=== PATIENT | female | born 1945 | race Caucasian/White ===

== ENCOUNTER 2017-06-13 04:56 | Inpatient (IN) | payer OTHER ==
[~2017-06-13] VITALS: Ht 165.1 cm; Wt 67.8 kg
--- NOTE | ~2017-06-13 | O ---
[facility] [place] [address] OPERATIVE REPORT Name: PRAVEENA FISHMAN Room #: 434-P [facility] IN M.R.#: [id number] Admission: 06/13/17 Attend Phys: Koko Medrano DO Discharge: 06/20/17 Date of : 43 Report #: [id number] THIS REPORT FOR: //name// CC: Tito Milian SURGEON: Shawn Jackson MD. SATELLITE SPECIALIST: Wiliam Blackwood DO. PREOPERATIVE DIAGNOSES: 1. 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 2. Diabetes mellitus. 3. Hypertension. 4. History of Ronnie thyroiditis. POSTOPERATIVE DIAGNOSES 1. 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 2. Extensive intra-abdominal adhesions. 3. Incarcerated incisional ventral hernia (from previous open appendectomy). 4. Diabetes mellitus. 5. Hypertension. 6. History of Ronnie thyroiditis. PROCEDURE: 1. Diagnostic laparoscopy with extensive laparoscopic lysis of adhesions lasting 82 minutes. 2. Laparoscopic primary repair of incarcerated incisional ventral hernia. 3. Laparoscopic converted to open laparotomy. 4. Revision of the ileocolic anastomosis (with resection and stapled reanastomosis in a lfvd-wg-[id number], functional end-to-side fashion). 5. Application of topical wound VAC/Prevena. 6. This is a modifier 22 operation based on the length of time necessary to takedown the adhesions. Adhesions were present throughout the entire abdominal cavity and dissection was very tedious in order to place ports after placement of the initial port. This operation took nearly an hour and a half longer than it would have otherwise taken. ANESTHESIA: General endotracheal anesthesia and local anesthetic. ESTIMATED BLOOD LOSS: 25 mL. SPECIMEN: Old anastomosis with suture marking, the colonic staple line and new [facility] [address] [place] [address] OPERATIVE REPORT Name: PRAVEENA FISHMAN Room #: 434-P [facility] IN ..#: [id number] Admission: 06/13/17 Attend Phys: Koko Medrano DO Discharge: 06/20/17 Date of : 43 Report #: [id number] anastomosis. COMPLICATIONS: None appreciated. INDICATIONS FOR PROCEDURE: This is a 71-year-old female patient who was transferred from the hospital in [place], [place] with complaints of nausea, vomiting, diarrhea and abdominal pain. She underwent a CT of abdomen and pelvis which revealed dilated loops of small bowel. She was decompressed with a nasogastric tube and had improvement of her pain and began passing flatus. Imaging studies revealed a partial small-bowel obstruction as well as stricture at the ileocolic anastomosis on barium enema. It was reported that she had a stricture at this anastomosis on a previous colonoscopy. The patient presents now for diagnostic laparoscopy with revision of the anastomosis. OPERATIVE FINDINGS: Upon entrance into the abdominal cavity laparoscopically, dense intra-abdominal adhesions were present from the patient's previous operations. After taking down enough adhesions to place initially a port in the left lateral abdomen, then on the left lower quadrant of the abdomen, I was able to take down enough of the scar tissue to visualize the colon; however, there was significant scar tissue throughout between the colon and loops of small bowel as well as to the anterior abdominal wall. After taking these down, I was able to identify an incisional ventral hernia associated with her open appendectomy incisional scar. This was incarcerated with preperitoneal fat with no bowel involvement. It was amenable to primary repair. This was performed laparoscopically before the decision was made to convert to an open procedure in order to better evaluate the ileocolic anastomosis. After making the incision, and after taking down more scar tissue, the ileocolic anastomosis was palpated to be 1 cm or less in diameter. There were chronic inflammatory changes around this area with no specific band of scar tissue causing an obstructive process. After freeing up enough of the small bowel and colon to be resected, the excised specimen was opened on the backtable. The strictured area was easily identified. No masses were present within the specimen. A 75 mm RASHAD stapler was used to create the vveb-zh-kxvr functional end-to-side anastomosis. The anastomosis was palpably patent after its creation and there was no tension on the anastomosis. No other significant intraabdominal pathology was identified. At the conclusion of the operation, sponge, needle, and instrument counts were correct and there was no evidence for iatrogenic injury. DESCRIPTION OF PROCEDURE IN DETAIL: After the risks, benefits, and expectations of the operation were discussed in detail with the patient, informed consent was obtained. The patient was identified in the preoperative holding area. She was given IV antibiotics as documented in the chart in line with SCIP metrics. The patient was then taken to the operating room and she was placed in the supine position. SCDs were placed on the patient's bilateral lower extremities and pneumatic compression was initiated. The patient was then given IV sedation and [address] [address] OPERATIVE REPORT Name: PRAVEENA FISHMAN Room #: 434-P [facility] IN [place].#: [id number] Admission: 06/13/17 Attend Phys: Koko Medrano Discharge: 06/20/17 Date of : 43 Report #: [id number] she was intubated without incident. Her abdomen was prepped and draped in the standard sterile fashion. A time-out was performed to identify the correct patient and procedure. Local anesthetic was infiltrated into the skin and subcutaneous tissue in the left subcostal area where a small transverse incision was made. A 5 mm Visiport was placed intraperitoneally with a 0-degree angled laparoscope. Pneumoperitoneum was then achieved with insufflation of carbon dioxide to 15 mmHg. The 0-degree angled laparoscope was used to take down the scar tissue along the left lateral abdomen to create space for placement of another port. After creating enough space, local anesthetic was infiltrated and an additional 5-mm port was placed through an appropriately sized incision after local anesthetic was infiltrated into the skin and subcutaneous tissue. Using this port, I was able to take down more of the adhesions in a slow and controlled fashion to clear enough space in the left lower quadrant for placement of an additional 5 mm port. A 30-degree angled laparoscope was then inserted. Dissection was carried out to take down the adhesions working from the patient's left abdomen over to the right abdomen. While doing so, an incisional ventral hernia was seen in the right abdomen associated with her previous open appendectomy. Additional small hernias were seen along the midline from her previous exploratory laparotomy. A eotvha-ts-vozkd 0 PDS suture was placed with the needle tipped suture grasper. The suture was tied with good closure of the defect. The incarcerated tissue had been dissected free of the defect. At this point, the anastomosis could no longer be evaluated laparoscopically or well visualized and decision was made to convert to an open procedure. The ports were removed and the abdominal cavity was desufflated. A sharp #10 blade scalpel was used to make a vertical midline incision through the skin and subcutaneous tissue. Electrocautery was used to dissect through the subcutaneous tissue down the fascia. The fascia and peritoneum were then opened along the length of the incision while also opening the hernia defects. The underlying colon was seen and appropriate traction was used to better expose the abdominal cavity. The colon and small bowel anastomosis was able to be identified and upon palpation, the anastomosis was felt to be quite small. The small bowel and colon were freed up enough more medially to create mesenteric windows with electrocautery. Blue load RASHAD staplers were used to staple and divide both the colon and small bowel. The mesentery was then divided with the X1 energy device with good hemostasis. The specimen was removed and placed on the backtable. The antimesenteric corners of the colon and small bowel were then aligned and approximated with a 3-0 PDS suture. The antimesenteric staple line corners were then excised and each limb of the blue load 75 mm RASHAD stapler were passed down each limb of the colon and small bowel. The stapler was then fired and removed. The common enterocolotomy was then approximated with Allis clamps. A 60 mm [place] stapler with a blue load was used to staple off the common enterocolotomy. The excess tissue was excised and the stapler was removed. The crotch of the anastomosis was reinforced with a simple interrupted 3-0 PDS suture. The mesenteric defect was closed with a running 3-0 PDS suture. [facility] [address] [place] [address] OPERATIVE REPORT Name: PRAVEENA FISHMAN Room #: 434-P DIS IN M.R.#: [id number] Admission: 06/13/17 Attend Phys: Koko Medrano, Discharge: 06/20/17 Date of : 43 Report #: [id number] Interrupted 3-0 PDS Lembert sutures were then used to imbricate the common enterocolotomy staple line. The anastomosis was palpably widely patent. There was no tension whatsoever on the anastomosis. The abdominal cavity was then irrigated and suctioned and return of all drainage ran clear. The sponge, needle and instrument counts were correct. No other pathology was identified. A running looped #1 PDS suture was then used to close the midline abdominal wall fascia. The wound was irrigated. Jasper were used for skin closure. Jasper were also placed at each of the port sites as well as in the right lower quadrant where a small stab wound was made to repair the incarcerated incisional ventral hernia. The skin was then cleansed and the Prevena topical negative pressure dressing was applied. A good seal was present. The patient tolerated the procedure well. She was awakened, extubated, and taken to recovery room in stable condition with no apparent intraoperative complications. <ELECTRONICALLY SIGNED> By: Shawn Jackson MD, FACS 06/20/17 [id number] Shawn Jackson MD, FACS /nt
--- NOTE | ~2017-06-13 | S ---
[facility] [place] [address] SURGICAL PATH RPT PROCEDURE Name: PRAVEENA FISHMAN Room #: 434-P DIS IN M.R.#: [id number] Admission: 06/13/17 Date of : 43 Discharge: 06/20/17 Report #: [id number] Path Case #: [id number] PATHOLOGY REPORT COLLECTION DATE: 06/16/2017 RECEIVED DATE: 06/20/2017 SUBMITTING PHYS: Dr. Shawn Jackson OTHER PHYS: Dr. Koko Blackwood, DO Abril Milian, [facility]- Dr. Norm Fuentes SPECIMEN(S) RECEIVED: A.Ileo-colic anastomosis-suture corona colon B.Anastomosis * * * * * * * * * * * * FINAL DIAGNOSIS: A. Small bowel and large intestine, Ileocolic anastomosis, resection: - Congested bowel wall associated with fibrous adhesions on serosal surface, history of scar tissue causing obstructive process. - Negative for dysplasia or malignancy. - Margins of resection viable and unremarkable. B. Anastomosis: - No diagnostic abnormalities present. (IUV:db; 06/21/2017) PATHOLOGIST: Mally Burdick M.D. REPORT ELECTRONICALLY SIGNED BY: Mally Burdick M.D. DATE/TIME: 06/21/2017 14:10 * * * * * * * * * * * * GROSS PATHOLOGY: A. The specimen is received in formalin, labeled "Steve, ileocolic anastomosis, suture corona colon is gastrointestinal tissue with a single attached suture. The specimen is consistent with a "side to side' anastomosis. The small intestine segment measures 7.0 cm length by 3.0 cm in diameter while the large intestine measures 8.0 cm in length by 3.4 cm in diameter. There is minimal fat attached to the specimen. The serosa is slightly congested, red maroon, and slightly hemorrhagic. The specimen is been previously opened. The anastomosis appears grossly intact. The small and large intestinal mucosa is folded, baig, green, and shows no obvious gross lesions. The surgical margins appear grossly viable. Sectioning the fat reveals no gross lesions. Veterinary [employer]ist sections are submitted as follows: [address] [address] SURGICAL PATH RPT PROCEDURE Name: PRAVEENA FISHMAN Room #: 434-P DIS IN M.R.#: [id number] Admission: 06/13/17 Date of : 43 Discharge: 06/20/17 Report #: [id number] Path Case #: [id number] A1-A2 anastomosis site A3-A4 quality control representative margins B. The specimen is received in formalin, labeled "Steve, anastomosis is a fragment of mucosal tissue with underlying muscularis propria, 4.0 x 1.5 x 1.2 cm. There is a staple line at one surface that measures up to 2.7 cm in length. The mucosa is glistening, baig, with no lesions identified. A quality control representative section is submitted as B1. (SAWYER; 06/20/2017) CLINICAL HISTORY: Bowel obstruction INITIAL CPT CODE(S): A; 74926 B; 88115 Professional services performed by [facility] at [facility] [address], [place] [address] Technical services performed by [facility] at [address] [place] [address], [address], [place] [address]. [facility] [address] [place] [address] PHONE: [phone] DIRECTOR: Melvin Roth M.D. * * * END OF REPORT * * *
[2017-06-13 10:45] VITALS: BP 158/75
[2017-06-13 12:04] LABS: URINE BILIRUBIN NEGATIVE (Negative); URINE BLOOD NEGATIVE (Negative); URINE COLOR YELLOW; URINE GLUCOSE-RANDOM* NEGATIVE (Negative); URINE KETONES NEGATIVE (Negative); URINE LEUKOCYTES-REFLEX NEGATIVE (Negative); URINE PROTEIN (DIPSTICK) TRACE (Negative); URINE UROBILINOGEN 0.2 E.U./dl (0.2-1.0)
[2017-06-13] MEDS ORDERED: FISH OIL 1,001000 M2 PO (12:35)
[2017-06-13] MEDS ORDERED: BENTYL 20 MG TA20 M1 PO (13:56)
[2017-06-13] MEDS ORDERED: CARVEDILOL12.5 MG PO (13:57)
[2017-06-13] MEDS ORDERED: HYOSCYAMINE0.125 MG PO (13:58)
[2017-06-13] MEDS ORDERED: PHENERGAN 25 MG25 M1 PO (13:59)
[2017-06-13 16:46] VITALS: BP 139/66
[2017-06-13 19:35] VITALS: BP 148/69
[2017-06-14 04:05] VITALS: BP 155/75
[2017-06-14 06:19] LABS: HEMATOCRIT 36.6 % (37.0-47.0); HEMOGLOBIN 12.1 gm/dL (12.0-15.0); MCH 27.7 pg (26.0-34.0); MCV 83.8 fL (80.0-100.0); PLATELET COUNT 242 thou/uL (150-400); RBC 4.37 mil/uL (4.20-5.00); RDW 15.9 % (10.5-14.5); WBC 8.4 thou/uL (4.0-11.0)
[2017-06-14 06:26] LABS: MANUAL DIFF YES
[2017-06-14 06:29] LABS: ALBUMIN 3.1 g/dL (3.4-5.0); CALCIUM 8.7 mg/dL (8.5-10.1); CREATININE 0.8 mg/dL (0.6-1.0); POTASSIUM 3.6 mmol/L (3.5-5.1); TOTAL PROTEIN 6.3 g/dL (6.4-8.2)
[2017-06-14 07:22] VITALS: BP 155/76
[2017-06-14 08:00] VITALS: BP 158/81
[2017-06-14 08:08] LABS: ABSOLUTE NEUTROPHILS 5.4 thou/uL (1.4-8.2); ANISOCYTOSIS 1+; TOTAL CELL COUNT 100
[2017-06-14 14:47] VITALS: BP 171/79
[2017-06-14 19:10] VITALS: BP 154/66
[2017-06-15 04:54] VITALS: BP 175/81
[2017-06-15 05:14] LABS: ABSOLUTE NEUTROPHILS 7.2 thou/uL (1.4-8.2); BASOPHILS 0.4 % (0.0-2.0); EOSINOPHILS 0.5 % (0.0-3.0); HEMATOCRIT 38.1 % (37.0-47.0); HEMOGLOBIN 12.6 gm/dL (12.0-15.0); LYMPHOCYTES 20.7 % (24.0-44.0); MCH 28.1 pg (26.0-34.0); MCHC 33.1 g/dL (28.0-37.0); MCV 84.9 fL (80.0-100.0); PLATELET COUNT 212 thou/uL (150-400); POLYS 68.4 % (36.0-66.0); RBC 4.49 mil/uL (4.20-5.00); RDW 15.9 % (10.5-14.5); WBC 10.5 thou/uL (4.0-11.0)
[2017-06-15 05:22] LABS: MANUAL DIFF NO
[2017-06-15 05:32] LABS: CALCIUM 8.5 mg/dL (8.5-10.1); CREATININE 0.8 mg/dL (0.6-1.0); POTASSIUM 3.5 mmol/L (3.5-5.1)
[2017-06-15 08:00] VITALS: BP 169/80
[2017-06-15 15:50] VITALS: BP 168/85
[2017-06-15 19:42] VITALS: BP 165/83
[2017-06-16 03:56] VITALS: BP 170/77
[2017-06-16 06:04] LABS: BASOPHILS 0.4 % (0.0-2.0); EOSINOPHILS 1.3 % (0.0-3.0); HEMATOCRIT 37.5 % (37.0-47.0); HEMOGLOBIN 12.3 gm/dL (12.0-15.0); LYMPHOCYTES 18.9 % (24.0-44.0); MCH 27.8 pg (26.0-34.0); MCHC 32.7 g/dL (28.0-37.0); MCV 84.9 fL (80.0-100.0); MONOCYTES 9.4 % (1.0-8.0); PLATELET COUNT 205 thou/uL (150-400); RBC 4.41 mil/uL (4.20-5.00); RDW 15.5 % (10.5-14.5); WBC 10.1 thou/uL (4.0-11.0)
[2017-06-16 06:06] LABS: MANUAL DIFF NO
[2017-06-16 06:14] LABS: INR 1.1; PROTIME 11.3 Seconds (9.3-11.4)
[2017-06-16 06:18] LABS: CALCIUM 8.5 mg/dL (8.5-10.1); CREATININE 0.6 mg/dL (0.6-1.0); MAGNESIUM 1.8 mg/dL (1.8-2.4); PHOSPHORUS 2.7 mg/dL (2.5-4.9)
[2017-06-16 08:00] VITALS: BP 146/66; BP 165/71
[2017-06-16 11:19] VITALS: BP 178/98
[2017-06-16 17:10] VITALS: BP 143/73
[2017-06-16 19:10] VITALS: BP 170/94
[2017-06-17 02:18] LABS: HEMATOCRIT 37.1 % (37.0-47.0); HEMOGLOBIN 12.1 gm/dL (12.0-15.0); MCH 27.5 pg (26.0-34.0); MCHC 32.6 g/dL (28.0-37.0); MCV 84.6 fL (80.0-100.0); PLATELET COUNT 207 thou/uL (150-400); RBC 4.38 mil/uL (4.20-5.00); RDW 14.8 % (10.5-14.5); WBC 17.1 thou/uL (4.0-11.0)
[2017-06-17 02:24] LABS: CALCIUM 8.5 mg/dL (8.5-10.1); CREATININE 0.8 mg/dL (0.6-1.0); POTASSIUM 3.9 mmol/L (3.5-5.1)
[2017-06-17 02:32] LABS: MANUAL DIFF YES
[2017-06-17 04:00] VITALS: BP 157/71
[2017-06-17 05:03] LABS: ABSOLUTE NEUTROPHILS 15.9 thou/uL (1.4-8.2); ANISOCYTOSIS SLIGHT; TOTAL CELL COUNT 100
[2017-06-17 08:00] VITALS: BP 161/70
[2017-06-17 16:00] VITALS: BP 146/64
[2017-06-17 19:30] VITALS: BP 165/80
[2017-06-18 02:57] LABS: ABSOLUTE NEUTROPHILS 8.2 thou/uL (1.4-8.2); BASOPHILS 0.2 % (0.0-2.0); EOSINOPHILS 0.3 % (0.0-3.0); HEMATOCRIT 32.4 % (37.0-47.0); HEMOGLOBIN 10.7 gm/dL (12.0-15.0); LYMPHOCYTES 10.5 % (24.0-44.0); MCHC 32.9 g/dL (28.0-37.0); MCV 85.2 fL (80.0-100.0); MONOCYTES 9.8 % (1.0-8.0); PLATELET COUNT 177 thou/uL (150-400); POLYS 79.2 % (36.0-66.0); RDW 15.3 % (10.5-14.5); WBC 10.4 thou/uL (4.0-11.0)
[2017-06-18 03:01] LABS: MANUAL DIFF NO
[2017-06-18 03:03] LABS: CALCIUM 8.2 mg/dL (8.5-10.1); CREATININE 0.6 mg/dL (0.6-1.0)
[2017-06-18 04:00] VITALS: BP 151/66
[2017-06-18 08:01] VITALS: BP 150/67
[2017-06-18 15:35] VITALS: BP 140/65
[2017-06-18 19:10] VITALS: BP 146/65
[2017-06-19 03:26] VITALS: BP 148/70
[2017-06-19 05:18] LABS: ABSOLUTE NEUTROPHILS 6.1 thou/uL (1.4-8.2); BASOPHILS 0.3 % (0.0-2.0); EOSINOPHILS 3.2 % (0.0-3.0); HEMATOCRIT 31.2 % (37.0-47.0); HEMOGLOBIN 10.3 gm/dL (12.0-15.0); LYMPHOCYTES 12.7 % (24.0-44.0); MCH 27.9 pg (26.0-34.0); MCV 84.7 fL (80.0-100.0); MONOCYTES 11.5 % (1.0-8.0); PLATELET COUNT 186 thou/uL (150-400); POLYS 72.3 % (36.0-66.0); RBC 3.68 mil/uL (4.20-5.00); WBC 8.4 thou/uL (4.0-11.0)
[2017-06-19 05:19] LABS: MANUAL DIFF NO
[2017-06-19 05:45] LABS: CALCIUM 8.3 mg/dL (8.5-10.1); CREATININE 0.5 mg/dL (0.6-1.0); MAGNESIUM 1.8 mg/dL (1.8-2.4); POTASSIUM 3.5 mmol/L (3.5-5.1)
[2017-06-19 09:08] VITALS: BP 145/75
[2017-06-19 19:44] VITALS: BP 144/72
[2017-06-20 05:09] VITALS: BP 162/78
[2017-06-20 06:23] LABS: HEMATOCRIT 31.3 % (37.0-47.0); HEMOGLOBIN 10.5 gm/dL (12.0-15.0); MANUAL DIFF YES; MCH 28.4 pg (26.0-34.0); MCHC 33.6 g/dL (28.0-37.0); MCV 84.5 fL (80.0-100.0); PLATELET COUNT 222 thou/uL (150-400); RBC 3.71 mil/uL (4.20-5.00); RDW 15.6 % (10.5-14.5); WBC 5.8 thou/uL (4.0-11.0)
[2017-06-20 06:31] LABS: CALCIUM 8.6 mg/dL (8.5-10.1); CREATININE 0.5 mg/dL (0.6-1.0); POTASSIUM 3.5 mmol/L (3.5-5.1)
[2017-06-20 08:00] VITALS: BP 147/77
[2017-06-20 08:44] LABS: ABSOLUTE NEUTROPHILS 3.9 thou/uL (1.4-8.2); PLATELET ESTIMATE NORMAL; TOTAL CELL COUNT 100
[2017-06-20] MEDS ORDERED: TRAMADOL 50 MG50 MG PO (10:37)
[2017-06-20] MEDS ORDERED: FAMOTIDINE20 MG/2 M2 PO (10:37)
[2017-06-20] MEDS ORDERED: MAGNESIUM OXID400 MG PO (10:37)
[2017-06-20 11:30] VITALS: BP 147/77
[2017-06-20] MEDS ORDERED: SENNA S TABLET1 EACH PO (11:35)
== END 2017-06-20 15:22 | disposition home health service (06) | DRG 329 ==
LOC: 4E 04:56 → 4S 10:09 → ENTRNSPT 06-20 15:07 → EDTRNSPTSTS 06-20 15:11 → 4S 06-20 15:22
PROVIDERS: Internal Medicine Geriatric Medicine; Nurse Practitioner; Nurse Practitioner Family; Otolaryngology; Surgery
PROC: 0WQF4ZZ Repair Abdominal Wall, Percutaneous Endoscopic Approach (ICD-10-PCS; principal; 2017-06-13)
PROC: 0D1B0ZH Bypass Ileum to Cecum, Open Approach (ICD-10-PCS; principal; 2017-06-13)
PROC: 0D9670Z Drainage of Stomach with Drainage Device, Via Natural or Artificial Opening (ICD-10-PCS; principal; 2017-06-13)
PROC: 0DN84ZZ Release Small Intestine, Percutaneous Endoscopic Approach (ICD-10-PCS; principal; 2017-06-13)
PROC: 0DNE4ZZ Release Large Intestine, Percutaneous Endoscopic Approach (ICD-10-PCS; principal; 2017-06-13)
DX: K56.69 Other intestinal obstruction (principal); E43 Unspecified severe protein-calorie malnutrition; E87.0 Hyperosmolality and hypernatremia; K43.6 Other and unspecified ventral hernia with obstruction, without gangrene; E11.9 Type 2 diabetes mellitus without complications; I10 Essential (primary) hypertension; K66.0 Peritoneal adhesions (postprocedural) (postinfection); E87.6 Hypokalemia; Z90.49 Acquired absence of other specified parts of digestive tract; Z90.710 Acquired absence of both cervix and uterus; Z82.49 Family history of ischemic heart disease and other diseases of the circulatory system; Z83.3 Family history of diabetes mellitus; Z82.0 Family history of epilepsy and other diseases of the nervous system; Z82.3 Family history of stroke; Z88.6 Allergy status to analgesic agent; Z88.0 Allergy status to penicillin; Z88.2 Allergy status to sulfonamides; Z79.899 Other long term (current) drug therapy; Z68.24 Body mass index [BMI] 24.0-24.9, adult; Y83.2 Surgical operation with anastomosis, bypass or graft as the cause of abnormal reaction of the patient, or of later complication, without mention of misadventure at the time of the procedure; Y73.8 Miscellaneous gastroenterology and urology devices associated with adverse incidents, not elsewhere classified; Z53.31 Laparoscopic surgical procedure converted to open procedure
CPT/HCPCS: 10102; 50010; 50093; 50101; 50249; 50386; 50455; 50555; 50953; 50962; 51412; 51435; 51708; 51712; 52265; 53307; 54022; 56462; 56525; 56526; 56527; 56530; 57092; 62110; 62900; 70005